=== PATIENT | male | born 1960 | race Caucasian/White ===

== ENCOUNTER 2018-12-01 06:42 | Day surgery (SDC) | payer BC ==
[2018-12-01] MEDS ORDERED: Midazolam 1 MG/ML 2 ML SDV IV ONE (06:43)
[2018-12-01] MEDS ORDERED: Propofol 200 MG/20 ML SDV IV ONE (06:43)
[2018-12-01] MEDS ORDERED: Lactated Ringers 1,000 ML IV SCH (06:45)
--- NOTE | 2018-12-01 08:15 | PCM.OPNOTE ---
- General Post-Op/Procedure Note Date of Surgery/Procedure: 12/01/18 Operative Procedure(s): c scope Findings: normal exam Pre Op Diagnosis: hx of rectal polyps Post-Op Diagnosis: normal exam Anesthesia Technique: MAC Primary Surgeon: Adair Araujo Anesthesia Provider: Bethany Santiago Pathology: none Complications: None Condition: Good Free Text/Narrative:: see dictation
--- NOTE | 2018-12-01 08:31 | OR ---
DATE OF OPERATION: 12/01/2018 SURGEON: Adair Araujo MD PROCEDURE PERFORMED: Colonoscopy. PREOPERATIVE DIAGNOSIS: Personal history of rectal polyps. POSTOPERATIVE DIAGNOSIS: Normal exam. INDICATIONS FOR PROCEDURE: A 58-year-old white male. Last scope was 5 years ago, had some rectal polyps removed, presents now for colonoscopy. DESCRIPTION OF OPERATION: After an excellent IV sedation was administered, digital rectal exam was performed. No abnormalities noted. Flexible colonoscope inserted and advanced to the cecum. Prep was excellent. The following findings were noted. Ascending colon, unremarkable. Transverse colon, unremarkable. Descending colon, unremarkable. Sigmoid and rectum, unremarkable. Colon was deflated. The scope was removed. The patient tolerated the procedure well. Repeat scope in 10 years. /[id number] /[id number]
== END 2018-12-01 08:56 | disposition home or self-care (01) ==
LOC: FB.SDS 06:42
PROVIDERS: ATTEND Surgery
DX: Z12.11 Encounter for screening for malignant neoplasm of colon (principal); Z87.19 Personal history of other diseases of the digestive system; Z79.82 Long term (current) use of aspirin; Z79.899 Other long term (current) drug therapy; Z83.71 Family history of colonic polyps
CPT/HCPCS: 45378; J2250; J2704; J7120; 00811-QZ